=== PATIENT | female | born 1965 | race Caucasian/White ===

== ENCOUNTER 2017-02-22 17:51 | Inpatient (IN) ==
[2017-02-22] MEDS ORDERED: 0.9 % Sodium Chloride 1,000 ML IVC ONE (18:12)
[2017-02-22 18:41] LABS: Basophils % 0.3 %; Eosinophils # 0.1 K/mcL (0.0-0.6); Eosinophils % 0.4 %; Hematocrit 46.3 % (35.3-44.9); Hemoglobin 15.4 g/dL (11.5-15.4); Immature Granulocytes % 0.3 % (0-4); Lymphocytes # 1.2 K/mcL (0.6-4.6); Lymphocytes % 10.6 %; Mean Corpuscular HGB Conc 33.3 g/dL (31.6-35.5); Mean Corpuscular Hemoglobin 32.3 pg (28.0-33.3); Mean Corpuscular Volume 97.1 fL (83.0-100.0); Mean Platelet Volume 8.9 fL (9.4-12.4); Monocytes # 0.4 K/mcL (0.0-1.3); Monocytes % 3.7 %; Neutrophils # 9.8 K/mcL (1.6-8.9); Platelet Count 478 K/mcL (140-400); Red Blood Count 4.77 M/mcL (3.82-4.97); Red Cell Distribution Width 13.4 % (11.5-14.5); Segmented Neutrophils % 84.7 %
[2017-02-22] MEDS ORDERED: Ondansetron 4 MG/2 ML VIAL IVP ONE (18:51)
--- NOTE | 2017-02-22 18:53 | Emergency Department Note ---
START Narrative - START START: Patient seen and evaluated. Upon EMS arrival. Patient was evaluated at [facility] earlier today. Last known well was last night. She went to sleep and woke up this morning complaining of chills, feeling weak all over, a right- sided frontal headache, right-sided facial numbness and feeling unwell. He went to [place] and had a negative head CT and workup and was discharged home. When she went home, she started developing nausea and vomiting. She states she has also developed trouble walking and feels like she is "drunk" has never had problems like this before. States her vision is off but denies any blurriness or diplopia. States she just feels generally unwell. States she does feel like she is having some slurred speech. On exam, the patient is slightly anxious, her muscle strength is 5 out of 5 in upper and lower extremities. Cranial nerves are intact. However, there is some mild decreased sensation of the right face. There is no ataxia. Speech is somewhat slow. However, there is no slurring or aphasia. NIH of 1. Stroke alert. Not called due to prolonged onset of symptoms. Workup started. Concern over potential posterior circulation. Will sign out with recommendations for admission and MRI. <Marcelino Atkins - Last Filed: 02/22/17 18:51> - START START: I, Aaron Diego, examined this patient and my medical decision-making was reviewed with the INDEPENDENT CONTRACTOR/PA/Advanced Practice Nurse/Resident Physician. I agree with the documented findings, disposition and treatment plan as described except to the extent set forth below. 51-year-old female is the emergency department for concerns of paresthesias to the right face, difficulty walking, headache and right-sided neck pain. Patient states she woke with these symptoms and they have not resolved. She was initially evaluated at a different emergency department with a negative CT of her head. She was discharged home however she continued to have increasing nausea and difficulty walking. Patient states she "feels like she is drunk". She denies illicit drug use or EtOH use today. No history of recent trauma. On physical exam the patient has subjective paresthesias to the right upper and lower face. She has no focal neurologic deficits however she does have increased difficulty with [id number] and [id number] testing. Stroke Alert not initiated as last known well was almost 24 hours prior to arrival to the emergency department today. Patient is pending CT of her head, labs, further evaluation and disposition at the end of my shift. Patient care will be transferred to Dr. Vaca pending further evaluation. <Aaron Diego - Last Filed: 02/23/17 13:59>
[2017-02-22] MEDS ORDERED: diazePAM 10 MG/2 ML SYRINGE IVP STA (18:55)
[2017-02-22 19:01] LABS: Alanine Aminotransferase 80 Units/L (0-55); Albumin/Globulin Ratio 0.9 (1.1-2.2); Alkaline Phosphatase 99 Units/L (38-126); Aspartate Amino Transferase 115 Units/L (5-34); BUN/Creatinine Ratio 23 (6-26); Bilirubin,Total 0.6 mg/dL (0.2-1.2); Blood Urea Nitrogen 19 mg/dL (7-20); Carbon Dioxide 26 mEq/L (19-29); Chloride 100 mEq/L (98-109); Globulin 4.4 g/dL (2.4-3.5); Glucose 147 mg/dL (70-99); Magnesium 2.1 mg/dL (1.6-2.6); Osmolality,Calculated 295 (280-300); Phosphorous 3.5 mg/dL (2.3-4.7); Sodium 140 mEq/L (136-145); Total Protein 8.4 g/dL (6.0-8.3); eGFR For African Americans > 60 (> 60); eGFR For Non-African Americans > 60 (> 60)
[2017-02-22 19:25] LABS: Thyroid Stimulating Hormone 0.611 mcIU/mL (0.350-4.840)
[2017-02-22] MEDS ORDERED: *HR* Promethazine 25 MG/ML VIAL IVP ONE (19:35)
[2017-02-22] MEDS ORDERED: Ketorolac 15 MG/ML VIAL IVP ONE (20:20)
[2017-02-22] MEDS ORDERED: Metoclopramide 10 MG/2 ML VIAL IVP ONE (20:20)
--- NOTE | 2017-02-22 21:29 | Emergency Department Note ---
Disposition Clinical Impression: Neurologic abnormality Nausea & vomiting Qualifiers: Vomiting type: unspecified Vomiting Intractability: intractable Qualified Code( s): R11.2 - Nausea with vomiting, unspecified Disposition: Admitted As Inpatient Time of Disposition: 06:07 Neuro HPI - General Chief Complaint: ED Neuro Symptoms/Deficit Stated Complaint: nausea/vomiting/tingling on right side Time Seen by Provider: 02/22/17 18:07 Source: patient Limitations: no limitations Nursing Notes Reviewed: Yes Vital Signs Reviewed: Yes - History of Present Illness HPI Narrative: Ms. Padilla, a 51-year-old female, arrives from home via EMS for evaluation of generalized weakness, headache, nausea, vomiting, inability to walk. She was evaluated at [facility] earlier today and sent home wearing her symptoms persisted and actually worsens. She describes her symptoms as a frontal right- sided headache, right-sided facial numbness and tingling, general unwell feeling , and inability to walk described as a feeling of vertigo. She describes her vision as being change from usual but is unable to describe it otherwise. No blurriness or double vision. Last known well was last night. PMH: Obesity, depression, hypertension ROS: Positive: Headache, nausea, vomiting, generalized weakness, vertigo, paresthesias Negative: Fever, chills, trauma - Related Data Home Medications: Home Medications Medication Instructions Recorded Confirmed BuPROPion XL (24 HR) [Wellbutrin 150 mg PO DAILY 01/21/15 02/22/17 XL] Losartan/HCTZ [Hyzaar 50/12.5] 1 each PO DAILY 01/21/15 02/22/17 CloNIDine HCl [Kapvay] 0.1 mg PO DAILY 02/22/17 02/22/17 Furosemide [Lasix] 20 mg PO DAILY 02/22/17 02/22/17 Ibuprofen [Motrin] 800 mg PO Q8HR 02/22/17 02/22/17 Meloxicam [Mobic] 15 mg PO DAILY 02/22/17 02/22/17 Potassium Chloride [Klor-Con 10] 10 meq PO DAILY 02/22/17 02/22/17 Tizanidine HCl [Zanaflex] 2 mg PO TID 02/22/17 02/22/17 Previous Rx's Medication Instructions Recorded Aspirin Enteric Coated [Aspirin EC] 81 mg PO DAILY #30 tablet. 11/11/16 Allergies/Adverse Reactions: Allergies Allergy/AdvReac Type Severity Reaction Status Date / Time IV DYE Allergy Hives Uncoded 02/22/17 18:04 All systems ED: reviewed and negative except as stated. Past Medical History - Past Medical History Medical history: Reports: hypertension, kidney stones, other Surgical history: Reports: cholecystectomy, other (lithotripsy) Psychiatric history: Reports: depression - Social History Smoking Status: Former smoker Smokeless Tobacco Status: No Alcohol use: Reports: occasionally Drug use: Reports: none Physical Exam Vital Signs Reviewed General: Patient is alert, oriented, and in no acute distress. HEENT: No facial asymmetry. Head is normocephalic and atraumatic. PERRLA, EOMI. no vertical nystagmus. Oral mucosa moist. Trachea midline. Cardiovascular: Heart regular rate and rhythm without clicks, rubs, gallops, or murmurs. No JVD. PMI nondisplaced. Respiratory: Symmetric chest rise with poor respiratory effort. Bilateral breath sounds are clear without wheezing, crackles, or rhonchi. Abdomen: Obese. Bowel sounds present normoactive x-4 quadrants. Abdomen is soft, nondistended, and nontender. Musculoskeletal: Muscle strength 4/5 and symmetric bilaterally in upper and lower extremities. DTRs 2/4 and symmetric bilaterally in upper and lower extremities. Neuro: Cranial nerves II through XII without deficit. Sensation light touch intact. Negative left hand finger to nose, slight ataxia with right finger to nose. Negative bilateral rapid alternating hands. Psych: Patient's affect is appropriate for situation. - General Limitations: no limitations General appearance: alert, other Course Course Narrative: Patient was received on sign out from the day team. On my arrival, she was retching loudly to be heard throughout the emergency department. Her nausea was markedly controlled with Zofran and Phenergan. Her headache persisted. This did improve with Toradol, morphine, and Zofran. Patient's neurologic exam is inconsistent. Patient has no history of coagulopathy, CVA, TIA, arrhythmia, CAD, or ACS. Cannot rule out posterior stroke at this time. Last known well was last night; patient is not a code stroke and is not a TPA candidate. My physical exam is somewhat limited due to suspected poor patient cooperation. Chest x-ray and CT head were unremarkable per radiology read. I discussed the patient with the admitting hospitalist, Dr. Jimenez. He agrees to accept the patient for inpatient MRI and continued evaluation. Chest X-Ray 02/22/17 18:12 IMPRESSION: No acute abnormality. D/ / Og Conrad / Og Conrad Interpreting Provider: Og Conrad Head CT 02/22/17 18:13 IMPRESSION: No findings diagnostic of an acute infarct Punctate foci of low density in the internal capsules bilaterally. This is indeterminate may be artifactual. Sequela of small prior lacunar infarcts not excluded. D/ / Og Conrad / Og Conrad Interpreting Provider: Og Conrad Vital Signs Temperature 97.4 F L 02/22/17 17:59 Pulse Rate 79 02/22/17 17:59 Respiratory Rate 18 02/22/17 17:59 Blood Pressure 149/85 02/22/17 17:59 O2 Sat by Pulse Oximetry 95 02/22/17 17:59 Temperature 97.9 F 02/23/17 03:38 Pulse Rate 72 02/23/17 04:47 Respiratory Rate 17 02/23/17 03:38 Blood Pressure 131/70 02/23/17 04:47 O2 Sat by Pulse Oximetry 91 02/23/17 03:38 Oxygen Delivery Oxygen Delivery Room Air Neuro Symptoms/Deficit - Lab Data Result diagrams: 02/22/17 18:31 02/22/17 18:31 Lab Results 02/22/17 02/22/17 02/22/17 Range/Units 18:11 18:31 18:31 WBC 11.6 H (4.3-11.1) K/mcL RBC 4.77 (3.82-4.97) M/mcL Hgb 15.4 (11.5-15.4) g/dL Hct 46.3 H (35.3-44.9) % MCV 97.1 (83.0-100.0) fL MCH 32.3 (28.0-33.3) pg MCHC 33.3 (31.6-35.5) g/dL RDW 13.4 (11.5-14.5) % Plt Count 478 H (140-400) K/mcL MPV 8.9 L (9.4-12.4) fL Immature Gran % 0.3 (0-4) % Seg Neutrophils % 84.7 % Lymphocytes % 10.6 % Monocytes % 3.7 % Eosinophils % 0.4 % Basophils % 0.3 % Neutrophils # 9.8 H (1.6-8.9) K/mcL Lymphocytes # 1.2 (0.6-4.6) K/mcL Monocytes # 0.4 (0.0-1.3) K/mcL Eosinophils # 0.1 (0.0-0.6) K/mcL Basophils # 0.0 (0.0-0.2) K/mcL Sodium 140 (136-145) mEq/L Potassium 4.0 (3.5-4.5) mEq/L Chloride 100 (98-109) mEq/L Carbon Dioxide 26 (19-29) mEq/L BUN 19 (7-20) mg/dL Creatinine 0.82 (0.57-1.11) mg/dL Est GFR ( Amer) > 60 (> 60) Est GFR (Non-Af Amer) > 60 (> 60) BUN/Creatinine Ratio 23 (6-26) Glucose 147 H (70-99) mg/dL POC Glucose 153 H (58-89) Calculated Osmolality 295 (280-300) Lactic Acid (0.5-2.2) mmol/L Calcium 10.0 (8.6-10.8) mg/dL Phosphorus 3.5 (2.3-4.7) mg/dL Magnesium 2.1 (1.6-2.6) mg/dL Total Bilirubin 0.6 (0.2-1.2) mg/dL AST 115 H (5-34) Units/L ALT 80 H (0-55) Units/L Alkaline Phosphatase 99 (38-126) Units/L Troponin I (0-0.03) ng/mL Serum Total Protein 8.4 H (6.0-8.3) g/dL Albumin 4.0 (3.5-5.0) g/dL Globulin 4.4 H (2.4-3.5) g/dL Albumin/Globulin Ratio 0.9 L (1.1-2.2) TSH 0.611 (0.350-4.840) mcIU/mL 02/22/17 02/22/17 Range/Units 18:31 18:31 WBC (4.3-11.1) K/mcL RBC (3.82-4.97) M/mcL Hgb (11.5-15.4) g/dL Hct (35.3-44.9) % MCV (83.0-100.0) fL MCH (28.0-33.3) pg MCHC (31.6-35.5) g/dL RDW (11.5-14.5) % Plt Count (140-400) K/mcL MPV (9.4-12.4) fL Immature Gran % (0-4) % Seg Neutrophils % % Lymphocytes % % Monocytes % % Eosinophils % % Basophils % % Neutrophils # (1.6-8.9) K/mcL Lymphocytes # (0.6-4.6) K/mcL Monocytes # (0.0-1.3) K/mcL Eosinophils # (0.0-0.6) K/mcL Basophils # (0.0-0.2) K/mcL Sodium (136-145) mEq/L Potassium (3.5-4.5) mEq/L Chloride (98-109) mEq/L Carbon Dioxide (19-29) mEq/L BUN (7-20) mg/dL Creatinine (0.57-1.11) mg/dL Est GFR ( Amer) (> 60) Est GFR (Non-Af Amer) (> 60) BUN/Creatinine Ratio (6-26) Glucose (70-99) mg/dL POC Glucose (58-89) Calculated Osmolality (280-300) Lactic Acid 2.2 (0.5-2.2) mmol/L Calcium (8.6-10.8) mg/dL Phosphorus (2.3-4.7) mg/dL Magnesium (1.6-2.6) mg/dL Total Bilirubin (0.2-1.2) mg/dL AST (5-34) Units/L ALT (0-55) Units/L Alkaline Phosphatase (38-126) Units/L Troponin I 0.00 (0-0.03) ng/mL Serum Total Protein (6.0-8.3) g/dL Albumin (3.5-5.0) g/dL Globulin (2.4-3.5) g/dL Albumin/Globulin Ratio (1.1-2.2) TSH (0.350-4.840) mcIU/mL NIH Stroke Scale - Level of Consciousness LOC: Drowsy, but arousable - LOC Questions LOC Questions: Answers both correctly - LOC Commands LOC Commands: Performs both correctly - Best Gaze Best Gaze: Normal - Visual Visual: No visual loss - Facial Palsy Facial Palsy: Normal - Motor Arms Motor Arm-Left: No drift for 10 seconds Motor Arm-Right: No drift for 10 seconds - Motor Legs Motor Leg-Left: No drift for 5 seconds Motor Leg-Right: No drift for 5 seconds - Limb Ataxia Limb Ataxia: Absent of affected limb too weak to perform exam - Sensory Sensory: Normal - Best Language Best Language: No aphasia - Dysarthria Dysarthria: Normal - Extinction and Inattention Extinction and Inattention: Normal - NIHSS Total Score NIHSS Total Score: 1 TPA Checklist - Source Information Source: Patient - Eligibilty for IV tPA 1. LKW equal to or less than 4.5 hours be before treatment: No - LKW: 3-4.5 hrs Add. Warnings/Precautions Patient/family understanding: The patient/family members have been counseled and understood the risk, benefit , and alternatives of treatment. Attestation Statement - Attestation Attestation: I, Perfecto Vaca MD, personally evaluated this patient and discussed their management with the resident physician. I reviewed the resident's note and agree with the documented findings, medical decision making, and plan of care. This patient was signed out at shift change from Dr. Atkins and Dr. Diego. Workup initiated prior to shift change. Patient is a 51-year-old female who reports that she awoke this morning feeling weak and dizzy and lightheaded with tingling and numbness in the right side of her face. She denies any numbness or weakness in the arm or leg. She complains of difficulty with her balance and nausea and vomiting also. Some posterior headache. She was seen this morning at another facility and had a negative head CT. After going home the nausea and vomiting became worse and she came here. On examination patient is a well-developed obese female in no acute distress. She is alert and oriented 3. There is no cyanosis or diaphoresis. Breath sounds are clear and equal bilaterally. Heart regular rate and rhythm. Abdomen soft and nontender with normal bowel sounds. No gross focal neurological deficits noted. Repeat head CT shows no findings diagnostic of an acute infarct. Labs reviewed. EKG shows a normal sinus rhythm with a heart rate of 82. Nonspecific T wave abnormality. No acute ischemic changes or arrhythmia. The hospitalist, Dr. Jimenez, was consulted and accepted admission of the patient.
[2017-02-23] MEDS ORDERED: Ondansetron 4 MG/2 ML VIAL IVP PRN (00:43)
[2017-02-23] MEDS ORDERED: *HR* Morphine 2 MG/ML SYRINGE IVP ONE (00:45)
[2017-02-23] MEDS: 0.9 % Sodium Chloride 1,000 ML IVC SCH ×2 (01:08→20:44)
[2017-02-23] MEDS ORDERED: *HR* LORazepam 2 MG/ML VIAL IVP ONE (05:03)
[2017-02-23] MEDS ORDERED: *HR* LORazepam 2 MG/ML VIAL ONE (05:06)
[2017-02-23] MEDS ORDERED: Naloxone 0.4 MG/ML INJ IVP PRN (05:28)
[2017-02-23] MEDS ORDERED: Acetaminophen 325 MG TABLET PO PRN (05:28)
[2017-02-23 05:40] LABS: Bilirubin,Urine Negative (Negative); Blood,Urine Negative (Negative); Clarity,Urine Clear (Clear); Color,Urine Yellow (Yellow); Glucose,Urine (UA) Normal (Normal); Ketones,Urine Negative (Negative); Leukocyte Esterase,Urine Negative (Negative); Nitrite,Urine Negative (Negative); Protein,Urine Negative (Neg-Trace); Specific Gravity,Urine 1.027 (1.010-1.025); Urobilinogen,Urine Normal (Normal)
--- NOTE | 2017-02-23 06:06 | Internal Med History&Physical ---
Date of Encounter: 02/23/17 Time of Encounter: 04:45 Assessment and Plan (1) Right facial numbness Current visit: Yes Status: Acute 1. Concern for TIA/stroke versus Avalos's Palsy. 2. Will proceed with stroke work-up including MRI, ECHO, Carotid Dopplers. 3. Consult Neurology and appropriate therapies. 4. ASA, STATIN. (2) Hypertension Current visit: Yes Status: Chronic 1. Monitor BP and do not treat unless it exceeds SBP 160. 2. If true stroke, will allow permissive HTN to SBP 160. 3. Verify home meds and initiate when able to so. Qualifiers: Hypertension type: essential hypertension Qualified Code(s): I10 - Essential (primary) hypertension (3) Nausea & vomiting Current visit: Yes Status: Acute 1. IVF and anti-emetics PRN. Qualifiers: Vomiting type: unspecified Vomiting Intractability: non-intractable Qualified Code(s): R11.2 - Nausea with vomiting, unspecified (4) DVT prophylaxis Current visit: Yes Status: Acute 1. Heparin SQ. Internal Medicine - H&P: HPI Chief complaint: right sided facial numbness Admitted From: Emergency Dept Plans for Post Hospital Care: Home History of present illness: Ms. Padilla is a 51 year old female who presents with complaints of right-sided facial numbness and paresthesias which started yesterday after awakening. Symptoms persisted throughout the day, and she came to the ER tonight. She denies any other focal deficits, but she has had some difficulty walking. Workup in the ER was negative, but the CT of the head did show some punctate foci in the internal capsules which may be artifact. She was subsequently admitted to the hospitalist service. She had a headache earlier with nausea and vomiting, but that resolved. She just has some periodic nausea now. She and her deny any speech deficits, choking, gagging, numbness or paralysis in her extremities. Past Med Surg Social Fam HX - Past Medical History Attestation: Yes The following information was validated with the patient. Source: patient, old records reviewed, obtained from family Medical history: hypertension, kidney stones Psychiatric history: depression - Past Surgical History Surgical History: cholecystectomy - Social History Smoking Status: Former smoker Smokeless Tobacco Status: No Alcohol use: occasionally Drug use: none Current living situation: Home, With Family Activity Level: Independent ambulation - Family History Mother Living Status: Hx Family Neuromuscular Disorders: No Father Living Status: Still Living Hx Family Neurologic Disorders: No Internal Medicine - H&P: Meds BuPROPion XL (24 HR) [Wellbutrin XL] 150 mg PO DAILY 01/21/15 [History] Losartan/HCTZ [Hyzaar 50/12.5] 1 each PO DAILY 01/21/15 [History] Aspirin Enteric Coated [Aspirin EC] 81 mg PO DAILY #30 tablet.dr 11/11/16 [Rx] CloNIDine HCl [Kapvay] 0.1 mg PO DAILY 02/22/17 [History] Furosemide [Lasix] 20 mg PO DAILY 02/22/17 [History] Ibuprofen [Motrin] 800 mg PO Q8HR 02/22/17 [History] Meloxicam [Mobic] 15 mg PO DAILY 02/22/17 [History] Potassium Chloride [Klor-Con 10] 10 meq PO DAILY 02/22/17 [History] Tizanidine HCl [Zanaflex] 2 mg PO TID 02/22/17 [History] 3 Allergy/AdvReac Type Severity Reaction Status Date / Time IV DYE Allergy Hives Uncoded 02/22/17 18:04 - Constitutional Constitutional: no anorexia, no chills, no fever(s), no night sweats - EENT Eyes: no blurry vision, no change in vision, no photophobia Ears: no ear pain, no tinnitus Nose, mouth and throat: no nasal congestion, no sinus pressure, no sore throat - Cardiovascular Cardiovascular ROS IM: no chest pain, no diaphoresis, no dyspnea - Respiratory Respiratory: no cough, no hemoptysis - Gastrointestinal Gastrointestinal: nausea, vomiting, no abdominal pain, no diarrhea - Genitourinary Genitourinary: no dysuria, no flank pain, no hematuria - Musculoskeletal Musculoskeletal ROS IM: no back pain, no neck pain, no stiffness - Integumentary Integumentary IM: no rash - Neurological Neurological ROS: abnormal gait, headache(s), numbness (right face), tingling ( right face), no focal weakness, no frequent falls - Psychiatric Psychiatric: no anxiety, no depression - Endocrine Endocrine IM: no polydipsia, no polyuria - Allergic/Immunologic Allergic/Immunologic: no GI upset with certain foods - Constitutional Vitals: Temp Pulse Resp BP Pulse Ox 97.9 F 72 17 131/70 91 02/23/17 03:38 02/23/17 04:47 02/23/17 03:38 02/23/17 04:47 02/23/17 03:38 General appearance: Present: A&O X 3, no acute distress - Head Head exam: Present: atraumatic, normal inspection - Eye Eye exam: Present: EOMI, PERRL. Absent: scleral icterus Pupils: Present: normal accommodation - ENT ENT exam: Present: mucous membranes dry, normal exam - Neck Neck exam general surgery: Present: full ROM, supple. Absent: tenderness, nuchal rigidity - Respiratory Respiratory exam: Present: CTAB. Absent: rales, rhonchi, wheezes - Cardiovascular Cardiovascular exam: Present: RRR, +S1, +S2. Absent: systolic murmur - GI/Abdominal GI/Abdominal exam: Present: soft. Absent: hepatomegaly, splenomegaly, tenderness - Extremities Exam Extremities exam: Present: warm, radial pulses palpable and symmetrical. Absent : calf tenderness, pedal edema - Back Exam Back exam: Present: normal inspection. Absent: CVA tenderness (L), CVA tenderness (R) - Neurological Exam Neurological exam: Present: alert, oriented X3, reflexes normal, strengths equal and symetr throughout. Absent: facial droop, speech deficit Additional comments: right facial numbness and parasthesias forehead to chin - Psychiatric Psychiatric exam: Present: normal affect, normal mood - Skin Skin exam: Present: dry, warm. Absent: rash Internal Med - H&P Results - Labs CBC & Chem 7: 02/22/17 18:31 02/22/17 18:31 Labs: Urine 02/23/17 Range/Units 05:30 Urine Color Yellow (Yellow) Urine Clarity Clear (Clear) Urine pH 6.0 (5.0-8.0) pH Units Ur Specific [place] 1.027 H (1.010-1.025) Urine Protein Negative (Neg-Trace) mg/dL Urine Glucose (UA) Normal (Normal) mg/dL - EKG Data -: EKG Interpreted by Myself EKG shows normal: sinus rhythm - EKG Data EKG comments: 02/23/17 06:17 NSR; no acute changes - Diagnostic Studies Chest x-ray Status: image reviewed by me (negative)
[2017-02-23 06:09] LABS: Prothrombin Time 10.9 Seconds (9.4-12.1)
[2017-02-23 06:12] LABS: Activated Partial Thrombo Time 27.1 Seconds (26.0-36.0)
[2017-02-23] MEDS: Ondansetron 4 MG/2 ML VIAL IVP SCH ×3 (07:27→17:37)
--- NOTE | 2017-02-23 09:55 | Neurology - Consult Note ---
Date of Encounter: 02/23/17 Time of Encounter: 08:40 Assessment and Plan (1) Tension headache Current Visit: No Status: Acute Continue on current medication including aspirin may use muscle relaxant at bedtime at the moment headaches are not as bad but if his bAd can use low-dose of Solu-Medrol (2) Right facial numbness Current Visit: Yes Status: Acute Patient noted to have a very minimal weakness of the right side but again not very convincing at the same time complaining of some facial numbness. She is been started on an aspirin I suggest to continue she will need workup including MRI of the brain as well as echocardiogram and carotid duplex continue to monitor her blood pressure and blood sugar according to the stroke protocol History of Present Illness HPI: Ms. Padilla is a 51 year old female Ms. Padilla, a 51-year-old female, arrives from home via EMS for evaluation of generalized weakness, headache, nausea, vomiting , inability to walk. She was evaluated at [facility] earlier today and sent home wearing her symptoms persisted and actually worsens. She describes her symptoms as a frontal right-sided headache, right-sided facial numbness and tingling, general unwell feeling, and inability to walk described as a feeling of vertigo. She describes her vision as being change from usual but is unable to describe it otherwise. No blurriness or double vision. Past Med Surg Social Fam HX - Past Medical History Medical history: hypertension, kidney stones Psychiatric history: depression - Past Surgical History Surgical History: cholecystectomy - Social History Smoking Status: Former smoker Smokeless Tobacco Status: No Alcohol use: occasionally Drug use: none - Family History Mother Living Status: Hx Family Neuromuscular Disorders: No Father Living Status: Still Living Hx Family Neurologic Disorders: No Medications and Allergies Losartan/HCTZ [Hyzaar 50/12.5] 1 each PO DAILY 01/21/15 [History] Aspirin Enteric Coated [Aspirin EC] 81 mg PO DAILY #30 tablet. 11/11/16 [Rx] Furosemide [Lasix] 20 mg PO DAILY 02/22/17 [History] Ibuprofen [Motrin] 800 mg PO Q8HR 02/22/17 [History] Meloxicam [Mobic] 15 mg PO DAILY 02/22/17 [History] Potassium Chloride [Klor-Con 10] 10 meq PO DAILY 02/22/17 [History] Tizanidine HCl [Zanaflex] 2 mg PO TID 02/22/17 [History] 3 Allergy/AdvReac Type Severity Reaction Status Date / Time IV DYE Allergy Hives Uncoded 02/22/17 18:04 All Systems: A 10-system review of systems was performed and is negative for pertinent findings except as documented above in the HPI. Physical Examination - Vital Signs Vital Signs: Initial Vital Signs Temp Pulse Resp BP Pulse Ox 97.4 F L 79 18 149/85 95 02/22/17 17:59 02/22/17 17:59 02/22/17 17:59 02/22/17 17:59 02/22/17 17:59 - Constitutional General appearance: comfortable - Neurologic Sensorimotor examination: intact Detailed motor examination: grossly full strength in all extremities Detailed sensory examination: intact Reflex and gait examination: intact Reflexes: Biceps: 1+, Triceps: 1+, Brachioradialis: 1+, Patella: 1+, Achilles: 1 + Mental Status Examination: awake, alert, oriented to person, oriented to place, oriented to time, follows commands appropriately, answers questions appropriately, no agnosia, no aphasia, no aproxia Cranial nerve examination: PERRL (mild dysmetria on right ), EOMI, visual waldrop intact, corneal reflexes brisk symmetrically, sensory to face intact, mastication intact, no facial asymmetry is present, no dysarthria, hearing is intact symmetrically, soft palate elevates bilaterally upon phonation, gag reflex intact, flexes SCM and trapezius muscles symmetrically with full power, tongue protrudes midline, no atrophy or facial fasiculations present Results - Laboratory Findings CBC and BMP: 02/24/17 04:40 02/24/17 04:40 Abnormal lab findings: Abnormal lab results WBC 11.6 K/mcL (4.3-11.1) H 02/22/17 18:31 Hct 46.3 % (35.3-44.9) H 02/22/17 18:31 Plt Count 478 K/mcL (140-400) H 02/22/17 18:31 MPV 8.9 fL (9.4-12.4) L 02/22/17 18:31 Neutrophils # 9.8 K/mcL (1.6-8.9) H 02/22/17 18:31 Glucose 147 mg/dL (70-99) H 02/22/17 18:31 POC Glucose 153 (58-89) H 02/22/17 18:11 AST 115 Units/L (5-34) H 02/22/17 18:31 ALT 80 Units/L (0-55) H 02/22/17 18:31 Serum Total Protein 8.4 g/dL (6.0-8.3) H 02/22/17 18:31 Globulin 4.4 g/dL (2.4-3.5) H 02/22/17 18:31 Albumin/Globulin Ratio 0.9 (1.1-2.2) L 02/22/17 18:31 Ur Specific [place] 1.027 (1.010-1.025) H 02/23/17 05:30 Consult Discharge Plan - Plan Referrals: Rosa Moran MD [Primary Care Provider] -
[2017-02-23] MEDS: Pantoprazole 40 MG VIAL IVP SCH (11:13)
[2017-02-23] MEDS: *HR* Heparin 5,000 UNIT/ML VIAL SQ SCH ×3 (11:13→20:34)
[2017-02-23] MEDS: Aspirin 81 MG TAB.CHEW PO SCH (11:14)
--- NOTE | 2017-02-23 17:52 | Internal Med Progress Note ---
Date of Encounter: 02/23/17 Time of Encounter: 10:00 - Assessment and plan (1) CVA (cerebral vascular accident) Current Visit: Yes Status: Acute Assessment and plan: Patient has positive MRI for infarct. Patient has vertigo, right-sided weakness. Neurology consult on case. - We will continue aspirin and atorvastatin. - Continue cardiac monitoring to rule out A. fib. - Echocardiogram and duplex carotid ordered. - PTOT evaluation. Patient passed swallowing evaluation already. - Symptomatic treatment with Zofran, phenergan, and meclizine. - IV fluid because patient has poor intake Qualifiers: CVA mechanism: unspecified Qualified Code(s): I63.9 - Cerebral infarction, unspecified (2) Hypertension Current Visit: Yes Status: Chronic Assessment and plan: Hold home medication as patient had acute stroke, keep permissive hypertension. Qualifiers: Hypertension type: essential hypertension Qualified Code(s): I10 - Essential (primary) hypertension (3) DVT prophylaxis Current Visit: Yes Status: Acute Assessment and plan: Heparin subcutaneously (4) Abnormal liver function Current Visit: Yes Status: Acute Assessment and plan: Mild ALT and AST elevation noticed. Patient denies alcohol use or history of hepatitis. Probably due to intractable nausea vomiting. Will follow up liver function, acute hepatitis panel, liver US. Will continue atorvastatin at 40 mg at this point because of acute CVA, however, may hold if liver function getting worse. Avoid other hepatic toxic medication - Time Spent With Patient 25 - 35 minutes - Subjective Interval history: Patient is a 51-year-old female admitted for vertigo, nausea, vomiting, and right-sided weakness. Past medical history is significant for hypertension and kidney stones Patient was seen and examined. Still has vertigo and nausea. Nausea can be controlled by medication. Still feel right side weakness. Vitals are stable. MRI shows tiny acute infarct involving the right portion of the medulla. Neurology consult appreciated. Agent was placed on aspirin and atorvastatin. - Constitutional Vitals: Temp Pulse Resp BP Pulse Ox 99.3 F 75 17 156/83 98 02/23/17 16:06 02/23/17 16:06 02/23/17 16:06 02/23/17 16:06 02/23/17 16:06 General appearance: Present: A&O X 3, no acute distress - Head Head exam: Present: atraumatic, normocephalic - Eye Eye exam: Present: PERRL, conjuntiva pink, sclera anicteric Pupils: Present: PERRL - Neck Neck exam general surgery: Present: supple, trachea midline. Absent: lymphadenopathy - Respiratory Respiratory exam: Present: CTAB. Absent: accessory muscle use, rales, rhonchi, wheezes - Cardiovascular Cardiovascular exam: Present: RRR, +S1, +S2. Absent: diastolic murmur, gallop, rubs, systolic murmur - GI/Abdominal GI/Abdominal exam: Present: normal bowel sounds, soft, no peritoneal signs. Absent: distended, tenderness - Extremities Exam Extremities exam: Present: warm, radial pulses palpable and symmetrical. Absent : calf tenderness, cyanotic, pedal edema - Neurological Exam Neurological exam: Present: CN II-XII intact, motor sensory deficit (LE/UE on Rt : 5-/5), oriented X3, no focal deficits. Absent: pronater drift, facial droop, speech deficit - Skin Skin exam: Present: dry, intact Internal Medicine: Result - Labs CBC & Chem 7: 02/22/17 18:31 02/22/17 18:31 Labs: Urine 02/23/17 Range/Units 05:30 Urine Color Yellow (Yellow) Urine Clarity Clear (Clear) Urine pH 6.0 (5.0-8.0) pH Units Ur Specific [place] 1.027 H (1.010-1.025) Urine Protein Negative (Neg-Trace) mg/dL Urine Glucose (UA) Normal (Normal) mg/dL - ABG Interpretation ABG results: PT/INR, D-dimer PT 10.9 Seconds (9.4-12.1) 02/23/17 05:53 - Impressions Impressions Brain MRI 02/23/17 05:28 IMPRESSION: Tiny acute infarct involving the right portion of the medulla. D/ / 02/23/2017 10:49:14 Froylan Mancia MD / nevaeh Interpreting Provider: Froylan Mancia MD Consult Discharge Plan - Plan Referrals: Rosa Moran MD [Primary Care Provider] -
[2017-02-23] MEDS: *HR* OxyCODONE Immed Rel 5 MG TABLET PO PRN (17:54)
[2017-02-24] MEDS: Ondansetron 4 MG/2 ML VIAL IVP SCH ×4 (00:02→17:52)
[2017-02-24] MEDS: Ibuprofen 400 MG TABLET PO PRN ×3 (03:59→21:43)
[2017-02-24 05:15] LABS: Basophils % 0.5 %; Eosinophils # 0.2 K/mcL (0.0-0.6); Eosinophils % 3.1 %; Hematocrit 38.9 % (35.3-44.9); Hemoglobin 12.6 g/dL (11.5-15.4); Immature Granulocytes % 0.3 % (0-4); Lymphocytes % 25.9 %; Mean Corpuscular HGB Conc 32.4 g/dL (31.6-35.5); Mean Corpuscular Hemoglobin 32.1 pg (28.0-33.3); Mean Platelet Volume 9.2 fL (9.4-12.4); Monocytes # 0.6 K/mcL (0.0-1.3); Monocytes % 7.1 %; Neutrophils # 4.9 K/mcL (1.6-8.9); Platelet Count 388 K/mcL (140-400); Red Blood Count 3.93 M/mcL (3.82-4.97); Red Cell Distribution Width 13.4 % (11.5-14.5); Segmented Neutrophils % 63.1 %
[2017-02-24 05:31] LABS: Alanine Aminotransferase 52 Units/L (0-55); Albumin/Globulin Ratio 0.9 (1.1-2.2); Alkaline Phosphatase 67 Units/L (38-126); Aspartate Amino Transferase 61 Units/L (5-34); BUN/Creatinine Ratio 15 (6-26); Bilirubin,Total 0.6 mg/dL (0.2-1.2); Blood Urea Nitrogen 11 mg/dL (7-20); Carbon Dioxide 26 mEq/L (19-29); Chloride 108 mEq/L (98-109); Chol/HDL Ratio 5.4 (0-4.9); Cholesterol 179 mg/dL (< 200); Globulin 3.4 g/dL (2.4-3.5); Glucose 130 mg/dL (70-99); HDL Cholesterol 33 mg/dL (40-59); LDL Cholesterol,Calculated 111 mg/dL (0-99); Magnesium 1.7 mg/dL (1.6-2.6); Osmolality,Calculated 295 (280-300); Potassium 3.4 mEq/L (3.5-4.5); Sodium 142 mEq/L (136-145); Triglycerides 177 mg/dL (< 150); eGFR For African Americans > 60 (> 60); eGFR For Non-African Americans > 60 (> 60)
[2017-02-24 05:32] LABS: Calcium 8.2 mg/dL (8.6-10.8)
[2017-02-24 05:33] LABS: Total Protein 6.4 g/dL (6.0-8.3)
[2017-02-24 05:54] LABS: Hepatitis A Antibody IgM Nonreactive (Nonreactive); Hepatitis B Core IgM Nonreactive (Nonreactive); Hepatitis B Surface Antigen Nonreactive (Nonreactive); Hepatitis C Virus Antibody Nonreactive (Nonreactive)
[2017-02-24] MEDS: *HR* Heparin 5,000 UNIT/ML VIAL SQ SCH ×3 (05:57→21:21)
[2017-02-24] MEDS: Pantoprazole 40 MG VIAL IVP SCH (09:57)
[2017-02-24] MEDS: Aspirin 81 MG TAB.CHEW PO SCH (09:57)
[2017-02-24] MEDS: 0.9 % Sodium Chloride 1,000 ML IVC SCH (09:58)
--- NOTE | 2017-02-24 13:27 | Neurology Progress Note ---
Date of Encounter: 02/24/17 Time of Encounter: 08:20 Assessment and Plan (1) CVA (cerebral vascular accident) Current Visit: Yes Status: Acute MRI of the brain did shows evidence of acute tiny right medullary infarct. Patient did not have any significant neurological deficit she has been on aspirin and blood pressure is being monitored , carotid results are pending at this time Recommend that she should continue on aspirin and statin. Continue to monitor her blood pressure patient seems to be quite anxious and nervous today may need some medication to help with it if she remains stable could be discharged after physical therapy evaluation Qualifiers: CVA mechanism: unspecified Qualified Code(s): I63.9 - Cerebral infarction, unspecified (2) Tension headache Current Visit: No Status: Acute (3) Right facial numbness Current Visit: Yes Status: Acute Subjective Interval history: Patient overall is stable she denies any new weakness or numbness seems to be very anxious and nervous and been crying today MRI did shows tiny acute infarct in the right side of the [place] echocardiogram is negative, awaits carotids results, Objective - Constitutional Vitals: Temp Pulse Resp BP Pulse Ox 97.9 F 86 17 165/84 96 02/24/17 07:00 02/24/17 07:00 02/24/17 07:00 02/24/17 07:00 02/24/17 07:00 - Neurological Exam Sensorimotor examination: Present: intact Motor Examination: Present: grossly full strength in all extremities Sensation intact: Present: intact Reflex and gait examination: intact Mental Status Examination: Present: awake, alert, oriented to person, oriented to place, oriented to time, follows commands appropriately, answers questions appropriately, no agnosia, no aphasia, no aproxia Cranial nerve examination: Present: PERRL (mild dysmetria on right ), EOMI, visual waldrop intact, corneal reflexes brisk symmetrically, sensory to face intact, mastication intact, no facial asymmetry is present, no dysarthria, hearing is intact symmetrically, soft palate elevates bilaterally upon phonation , gag reflex intact, flexes SCM and trapezius muscles symmetrically with full power, tongue protrudes midline, no atrophy or facial fasiculations present Results - Laboratory Findings CBC and BMP: 02/24/17 04:40 02/24/17 04:40 Abnormal lab findings: Abnormal lab results MPV 9.2 fL (9.4-12.4) L 09/19/17 04:40 Potassium 3.4 mEq/L (3.5-4.5) L 02/24/17 04:40 Glucose 130 mg/dL (70-99) H 02/24/17 04:40 POC Glucose 153 (58-89) H 02/22/17 18:11 Calcium 8.2 mg/dL (8.6-10.8) L D 02/24/17 04:40 AST 61 Units/L (5-34) H 02/24/17 04:40 Albumin 3.0 g/dL (3.5-5.0) L D 02/24/17 04:40 Albumin/Globulin Ratio 0.9 (1.1-2.2) L 02/24/17 04:40 Triglycerides 177 mg/dL (< 150) H 02/24/17 04:40 LDL Cholesterol, Calc 111 mg/dL (0-99) H 02/24/17 04:40 VLDL Cholesterol, Calc 35 mg/dL (< 31) H 02/24/17 04:40 HDL Cholesterol 33 mg/dL (40-59) L 02/24/17 04:40 Cholesterol/HDL Ratio 5.4 (0-4.9) H 02/24/17 04:40 Ur Specific [place] 1.027 (1.010-1.025) H 02/23/17 05:30 Consult Discharge Plan - Plan Referrals: Rosa Moran MD [Primary Care Provider] -
[2017-02-24] MEDS: *HR* OxyCODONE Immed Rel 5 MG TABLET PO PRN (15:12)
--- NOTE | 2017-02-24 18:26 | Electrocardiograph Report ---
[place] [id number] Test Date: 2017-02-22 Pat Name: Maria Teresa Padilla Department: 105 Room: 2NE27 Gender: F [employer] Manager: EKP : [id number] Requested By: Marcelino Atkins Order Number: [id number] Reading MD: Lizzie Eric Measurements Intervals [place] Rate: 82 P: 48 AR: 161 QRS: 33 QRSD: 89 T: 56 QT: 398 QTc: 437 Interpretive Statements SINUS RHYTHM NONSPECIFIC T-WAVE ABNORMALITY Electronically Signed On 02-24-2017 18:24:36 EDT by Lizzie Eric
--- NOTE | 2017-02-24 18:30 | Internal Med Progress Note ---
Date of Encounter: 02/24/17 Time of Encounter: 10:00 - Assessment and plan (1) CVA (cerebral vascular accident) Current Visit: Yes Status: Acute Assessment and plan: Patient has positive MRI for infarct. Patient has vertigo, right-sided weakness. Neurology consult on case. - We will continue aspirin and atorvastatin. - Continue cardiac monitoring to rule out A. fib. - Echocardiogram and duplex carotid ordered. Results unremarkable - PTOT evaluation. Patient passed swallowing evaluation already. - Symptomatic treatment with Zofran, phenergan, and meclizine. - IV fluid because patient has poor intake Qualifiers: CVA mechanism: unspecified Qualified Code(s): I63.9 - Cerebral infarction, unspecified (2) Hypertension Current Visit: Yes Status: Chronic Assessment and plan: Hold home medication as patient had acute stroke, keep permissive hypertension. Qualifiers: Hypertension type: essential hypertension Qualified Code(s): I10 - Essential (primary) hypertension (3) DVT prophylaxis Current Visit: Yes Status: Acute Assessment and plan: Heparin subcutaneously (4) Abnormal liver function Current Visit: Yes Status: Acute Assessment and plan: Mild ALT and AST elevation noticed. Patient denies alcohol use or history of hepatitis. Probably due to intractable nausea vomiting. Improved today. US liver shows fatty liver. Hepatitis test negative for hepatitis A, B, and C. - Time Spent With Patient 25 - 35 minutes - Subjective Interval history: Patient is a 51-year-old female admitted for vertigo, nausea, vomiting, and right-sided weakness. Past medical history is significant for hypertension and kidney stones Patient was seen and examined. Still has vertigo and nausea, improved after medications. Nausea can be controlled by medication. Still feel right side weakness. Vitals are stable. MRI shows tiny acute infarct involving the right portion of the medulla. Neurology consult on case. Pt was placed on aspirin and atorvastatin. PT/OT evaluation. - Constitutional Vitals: Temp Pulse Resp BP Pulse Ox 98.2 F 81 17 158/78 94 02/24/17 14:57 02/24/17 14:57 02/24/17 14:57 02/24/17 14:57 02/24/17 14:57 General appearance: Present: A&O X 3, no acute distress - Head Head exam: Present: atraumatic, normocephalic - Eye Eye exam: Present: PERRL, conjuntiva pink, sclera anicteric Pupils: Present: PERRL - Neck Neck exam general surgery: Present: supple, trachea midline. Absent: lymphadenopathy - Respiratory Respiratory exam: Present: CTAB. Absent: accessory muscle use, rales, rhonchi, wheezes - Cardiovascular Cardiovascular exam: Present: RRR, +S1, +S2. Absent: diastolic murmur, gallop, rubs, systolic murmur - GI/Abdominal GI/Abdominal exam: Present: normal bowel sounds, soft, no peritoneal signs. Absent: distended, tenderness - Extremities Exam Extremities exam: Present: warm, radial pulses palpable and symmetrical. Absent : calf tenderness, cyanotic, pedal edema - Neurological Exam Neurological exam: Present: CN II-XII intact, motor sensory deficit (Right side 5-/5), oriented X3, no focal deficits. Absent: pronater drift, facial droop, speech deficit - Skin Skin exam: Present: dry, intact Internal Medicine: Result - Labs CBC & Chem 7: 02/24/17 04:40 02/24/17 04:40 - ABG Interpretation ABG results: PT/INR, D-dimer PT 10.9 Seconds (9.4-12.1) 02/23/17 05:53 Consult Discharge Plan - Plan Referrals: Rosa Moran MD [Primary Care Provider] -
[2017-02-25] MEDS: Ondansetron 4 MG/2 ML VIAL IVP SCH ×2 (00:18→05:57)
[2017-02-25] MEDS: *HR* Heparin 5,000 UNIT/ML VIAL SQ SCH (05:58)
[2017-02-25 06:44] LABS: Basophils % 0.4 %; Eosinophils # 0.4 K/mcL (0.0-0.6); Eosinophils % 4.7 %; Hematocrit 41.9 % (35.3-44.9); Hemoglobin 13.4 g/dL (11.5-15.4); Immature Granulocytes % 0.4 % (0-4); Lymphocytes # 2.1 K/mcL (0.6-4.6); Lymphocytes % 24.6 %; Mean Corpuscular Hemoglobin 31.7 pg (28.0-33.3); Mean Corpuscular Volume 99.1 fL (83.0-100.0); Mean Platelet Volume 9.4 fL (9.4-12.4); Monocytes # 0.6 K/mcL (0.0-1.3); Monocytes % 7.4 %; Neutrophils # 5.2 K/mcL (1.6-8.9); Platelet Count 394 K/mcL (140-400); Red Blood Count 4.23 M/mcL (3.82-4.97); Red Cell Distribution Width 13.2 % (11.5-14.5); Segmented Neutrophils % 62.5 %
[2017-02-25 07:00] LABS: Alanine Aminotransferase 46 Units/L (0-55); Albumin 3.2 g/dL (3.5-5.0); Albumin/Globulin Ratio 0.8 (1.1-2.2); Alkaline Phosphatase 75 Units/L (38-126); Aspartate Amino Transferase 47 Units/L (5-34); BUN/Creatinine Ratio 17 (6-26); Bilirubin,Total 0.4 mg/dL (0.2-1.2); Blood Urea Nitrogen 13 mg/dL (7-20); Calcium 8.6 mg/dL (8.6-10.8); Carbon Dioxide 22 mEq/L (19-29); Chloride 109 mEq/L (98-109); Globulin 3.8 g/dL (2.4-3.5); Glucose 111 mg/dL (70-99); Osmolality,Calculated 291 (280-300); Sodium 140 mEq/L (136-145); eGFR For African Americans > 60 (> 60); eGFR For Non-African Americans > 60 (> 60)
--- NOTE | 2017-02-25 07:38 | Carotid Imaging Report ---
Carotid Duplex Patient Name:Maria Teresa Padilla Order Number:[id number] Procedure Date:02/23/2017 Date:1965Age:51 yrs Gender:Female Lt BP:135 / 75 mmHg Rt.BP:132 / 73 mmHgHeart Rate: Location:[facility] Room #: 2NE27 Pantograph Transferrer:Nadege Salinas, CHEO, RVT Referring MD:Je Jimenez MD Reading MD:Ruben Macias MD Primary Indications:Transient ischemic attack Risk Factors Yes/No Hypertension Yes Smoker Previous Yes Impressions: Findings: Bilateral carotid system is essentially normal. Recommendations: After imaging the patient returned to their room. Findings Carotid Duplex: Right: The right proximal common carotid artery has a PSV of 80 cm/s and a EDV of 22 cm/s. The right mid common carotid artery has a PSV of 67 cm/s and a EDV of 19 cm/s. The right distal common carotid artery has a PSV of 50 cm/s and a EDV of 15 cm/s. The right bifurcation has a PSV of 43 cm/s and a EDV of 15 cm/s. The right proximal internal carotid artery has a PSV of 58 cm/s and a EDV of 15 cm/s. The right mid internal carotid artery has a PSV of 106 cm/s and a EDV of 32 cm/s. The right distal internal carotid artery has a PSV of 117 cm/s and a EDV of 37 cm/s. The right eca has a PSV of 157 cm/s and a EDV of 23 cm/s. The right vertebral artery has a PSV of 92 cm/s and a EDV of 33 cm/s. Left: The left proximal common carotid artery has a PSV of 106 cm/s and a EDV of 25 cm/s. The left mid common carotid artery has a PSV of 65 cm/s and a EDV of 20 cm/s. The left distal common carotid artery has a PSV of 77 cm/s and a EDV of 26 cm/s. The left bifurcation has a PSV of 70 cm/s and a EDV of 22 cm/s. The left proximal internal carotid artery has a PSV of 81 cm/s and a EDV of 26 cm/s. The left mid internal carotid artery has a PSV of 87 cm/s and a EDV of 30 cm/s. The left distal internal carotid artery has a PSV of 81 cm/s and a EDV of 30 cm/s. The left eca has a PSV of 157 cm/s and a EDV of 21 cm/s. The left vertebral artery has a PSV of 77 cm/s and a EDV of 15 cm/s. Prior Study: No prior study available for comparison. Carotid Results Right PSV EDV Assessment Proximal CCA 80 22 Mid CCA 67 19 Distal CCA 50 15 Bifurcation 43 15 Proximal ICA 58 15 Mid ICA 106 32 Distal ICA 117 37 ECA 157 23 Vertebral Artery 92 33 Antegrade Flow Left PSV EDV Assessment Proximal CCA 106 25 Mid CCA 65 20 Distal CCA 77 26 Bifurcation 70 22 Proximal ICA 81 26 Mid ICA 87 30 Distal ICA 81 30 ECA 157 21 Vertebral Artery 77 15 Antegrade Flow Ratio's Right ICA/CCA Ratio: 1.75 ICA/CCA Values: 117/67 Left ICA/CCA Ratio: 1.34 ICA/CCA Values: 87/65 Updated by Ruben Macias MD on 02/25/2017 7:30:48 AM electronically signed on 02/25/2017 7:31:00 AM with status of Final
[2017-02-25] MEDS: Aspirin 81 MG TAB.CHEW PO SCH (08:59)
[2017-02-25] MEDS: *HR* OxyCODONE Immed Rel 5 MG TABLET PO PRN (09:02)
--- NOTE | 2017-02-25 10:17 | Discharge Summary ---
Date of Encounter: 02/25/17 Time of Encounter: 09:00 - Discharge Diagnosis (1) CVA (cerebral vascular accident) Priority: Primary Status: Acute Qualifiers: CVA mechanism: unspecified Qualified Code(s): I63.9 - Cerebral infarction, unspecified (2) Hypertension Priority: Secondary Status: Chronic Qualifiers: Hypertension type: essential hypertension Qualified Code(s): I10 - Essential (primary) hypertension (3) DVT prophylaxis Priority: Secondary Status: Acute (4) Abnormal liver function Priority: Secondary Status: Acute - Discharge Medications Prescriptions: Atorvastatin [Lipitor] 40 mg PO HS #30 tablet Meclizine [Antivert] 25 mg PO TID #60 tablet Ondansetron [Zuplenz] 4 mg PO Q6H PRN #30 film PRN Reason: Nausea Home Medications: Losartan/HCTZ [Hyzaar 50/12.5] 1 each PO DAILY 01/21/15 [History] Aspirin Enteric Coated [Aspirin EC] 81 mg PO DAILY #30 tablet. 11/11/16 [Rx] Furosemide [Lasix] 20 mg PO DAILY 02/22/17 [History] Meloxicam [Mobic] 15 mg PO DAILY 02/22/17 [History] Potassium Chloride [Klor-Con 10] 10 meq PO DAILY 02/22/17 [History] Tizanidine HCl [Zanaflex] 2 mg PO TID 02/22/17 [History] Atorvastatin [Lipitor] 40 mg PO HS #30 tablet 02/25/17 [Rx] Meclizine [Antivert] 25 mg PO TID #60 tablet 02/25/17 [Rx] Ondansetron [Zuplenz] 4 mg PO Q6H PRN #30 film 02/25/17 [Rx] Allergies/Adverse Reactions: 3 Allergy/AdvReac Type Severity Reaction Status Date / Time IV DYE Allergy Hives Uncoded 02/22/17 18:04 - Notes to Outpatient Provider 1. Patient has transient abnormal liver function, probably due to nausea and vomiting. Liver functions improved now. However, she was started on atorvastatin. Please follow-up her liver function on next outpatient visit. Date of admission: 02/24/17 13:20 Primary care physician: Rosa Moran Discharging clinician: Se Duke Anticipated date of discharge: 09/20/17 - Patient Status Disposition: Home, Self-Care Condition: Good Functional capacity at discharge: independent ambulation Overall status at discharge: patient is progressing back to baseline - Discharge Instructions Follow Up With: Rosa Moran MD [Primary Care Provider] - 03/05/17 4:00 pm - Diet and Activity Activity: increase activity as tolerated Diet: low fat, low cholesterol, low salt diet Interval History: HPI: Ms. Padilla is a 51 year old female who presents with complaints of right-sided facial numbness and paresthesias which started yesterday after awakening. Symptoms persisted throughout the day, and she came to the ER tonight. She denies any other focal deficits, but she has had some difficulty walking. Workup in the ER was negative, but the CT of the head did show some punctate foci in the internal capsules which may be artifact. She was subsequently admitted to the hospitalist service. She had a headache earlier with nausea and vomiting, but that resolved. She just has some periodic nausea now. She and her deny any speech deficits, choking, gagging, numbness or paralysis in her extremities. Hospital course: Ms. Padilla is a 51 year old female admitted for right-sided numbness and vertigo. Patient had MRI shows acute infarct on the right medulla. Neurology consult was called and saw patient. Patient had echocardiogram, duplex carotid, and continuous cardiac monitoring for over 24 hours, all results unremarkable. PT OT and speech therapy saw patient, patient does not need further PTOT. Patient is cleared by swallow evaluation. Patient was placed on aspirin and atorvastatin. Patient also was treated symptomatically with meclizine and Zofran. After treatment, her condition has improved, she tolerated cardiac diet well, and no further vomiting. Patient will discharge home and the follow- up with PCP as outpatient. I saw and examined the patient today. She is awake alert, oriented 3. Still mild dizziness, no nausea no vomiting. Can walk in the room without assistance. Vitals are stable. Patient will be discharged home with aspirin and atorvastatin. She will follow-up with PCP as outpatient. Patient is advised to stop driving until further cleared by PCP. - Time Spent with Patient Total time spent providing and/or coordinating discharge services: 25 minutes Less than 30 minutes - Constitutional Vitals: Temp Pulse Resp BP Pulse Ox 98 F 70 16 161/87 97 02/25/17 07:01 02/25/17 07:01 02/25/17 07:01 02/25/17 07:01 02/25/17 09:07 General appearance: Present: A&O X 3, no acute distress - Head Head exam: Present: atraumatic, normocephalic - Eye Eye exam: Present: PERRL, conjuntiva pink, sclera anicteric Pupils: Present: PERRL - Neck Neck exam general surgery: Present: supple, trachea midline. Absent: lymphadenopathy - Respiratory Respiratory exam: Present: CTAB. Absent: accessory muscle use, rales, rhonchi, wheezes - Cardiovascular Cardiovascular exam: Present: RRR, +S1, +S2. Absent: diastolic murmur, gallop, rubs, systolic murmur - GI/Abdominal GI/Abdominal exam: Present: normal bowel sounds, soft, no peritoneal signs. Absent: distended, tenderness - Extremities Exam Extremities exam: Present: warm, radial pulses palpable and symmetrical. Absent : calf tenderness, cyanotic, pedal edema - Neurological Exam Neurological exam: Present: CN II-XII intact, oriented X3, no focal deficits. Absent: pronater drift, facial droop, speech deficit - Skin Skin exam: Present: dry, intact
[2017-02-25 11:04] VITALS: BP 157/76
--- NOTE | 2017-02-25 12:15 | Neurology Progress Note ---
Date of Encounter: 02/25/17 Time of Encounter: 07:25 Assessment and Plan (1) CVA (cerebral vascular accident) Current Visit: Yes Status: Acute Overall patient is a stable no evidence of any embolic source suspected is a small vessel disease likely related to hypertension hyperglycemia. Suggest to continue on antiplatelet therapy as well as statin. Considering she did not have any significant focal neurological deficit do not think that she would require any short-term rehabilitation. Next on patient to be followed up by primary care physician as well as with neurology in 2-4 weeks Qualifiers: CVA mechanism: unspecified Qualified Code(s): I63.9 - Cerebral infarction, unspecified (2) Tension headache Current Visit: No Status: Acute (3) Right facial numbness Current Visit: Yes Status: Acute Subjective Interval history: Patient overall is stable she denies any new weakness or numbness less anxious and nervous today MRI did shows tiny acute infarct in the right side of the [place] echocardiogram is negative, carotids were also negative, doing better, Objective - Constitutional Vitals: Temp Pulse Resp BP Pulse Ox 98.4 F 78 16 157/76 98 02/25/17 11:02 02/25/17 11:02 02/25/17 11:02 02/25/17 11:02 02/25/17 11:02 - Neurological Exam Sensorimotor examination: Present: intact Motor Examination: Present: grossly full strength in all extremities Sensation intact: Present: intact Reflex and gait examination: intact Mental Status Examination: Present: awake, alert, oriented to person, oriented to place, oriented to time, follows commands appropriately, answers questions appropriately, no agnosia, no aphasia, no aproxia Cranial nerve examination: Present: PERRL (mild dysmetria on right ), EOMI, visual waldrop intact, corneal reflexes brisk symmetrically, sensory to face intact, mastication intact, no facial asymmetry is present, no dysarthria, hearing is intact symmetrically, soft palate elevates bilaterally upon phonation , gag reflex intact, flexes SCM and trapezius muscles symmetrically with full power, tongue protrudes midline, no atrophy or facial fasiculations present Results - Laboratory Findings CBC and BMP: 02/25/17 04:38 02/25/17 04:38 Abnormal lab findings: Abnormal lab results Glucose 111 mg/dL (70-99) H 02/25/17 04:38 POC Glucose 153 (58-89) H 02/22/17 18:11 AST 47 Units/L (5-34) H 02/25/17 04:38 Albumin 3.2 g/dL (3.5-5.0) L 02/25/17 04:38 Globulin 3.8 g/dL (2.4-3.5) H 02/25/17 04:38 Albumin/Globulin Ratio 0.8 (1.1-2.2) L 02/25/17 04:38 Triglycerides 177 mg/dL (< 150) H 02/24/17 04:40 LDL Cholesterol, Calc 111 mg/dL (0-99) H 02/24/17 04:40 VLDL Cholesterol, Calc 35 mg/dL (< 31) H 02/24/17 04:40 HDL Cholesterol 33 mg/dL (40-59) L 02/24/17 04:40 Cholesterol/HDL Ratio 5.4 (0-4.9) H 02/24/17 04:40 Ur Specific [place] 1.027 (1.010-1.025) H 02/23/17 05:30 Consult Discharge Plan - Plan Referrals: Rosa Moran MD [Primary Care Provider] - 03/05/17 4:00 pm Prescriptions: Atorvastatin [Lipitor] 40 mg PO HS #30 tablet Meclizine [Antivert] 25 mg PO TID #60 tablet Ondansetron [Zuplenz] 4 mg PO Q6H PRN #30 film PRN Reason: Nausea
== END 2017-02-25 15:37 | disposition home or self-care (01) | DRG 66 ==
LOC: 2NENU 17:51 → EMEROO 17:51 → 2NENU 23:36
PROVIDERS: ADMIT Pediatrics; ATTEND Internal Medicine

== ENCOUNTER 2021-08-29 06:20 | Inpatient (IN) ==
[2021-08-29] MEDS ORDERED: *HR* Propofol 200 MG/20 ML VIAL IVP ONE (06:43)
[2021-08-29] MEDS ORDERED: Lidocaine -MPF 2% 2 ML VIAL ONE (06:44)
[2021-08-29] MEDS ORDERED: Lidocaine -MPF 4% 5 ML AMPUL ONE (06:44)
[2021-08-29] MEDS ORDERED: *HR* Rocuronium Bromide 50 MG/5 ML VIAL ONE ×2 (06:44→08:34)
[2021-08-29] MEDS ORDERED: Ondansetron 4 MG/2 ML VIAL ONE (06:44)
[2021-08-29] MEDS ORDERED: CeFAZolin Syr 2,000MG/20 ML 2,000 MG/20 ML SYRINGE IVPB ONE (06:57)
[2021-08-29] MEDS ORDERED: *HR* FentaNYL (PF) 100 MCG/2 ML VIAL ONE (07:07)
[2021-08-29] MEDS ORDERED: Pregabalin 75 MG CAPSULE PO ONE (07:10)
[2021-08-29] MEDS ORDERED: tiZANidine 4 MG TABLET PO ONE (07:10)
[2021-08-29] MEDS ORDERED: *HR* Midazolam HCl 2 MG/2 ML VIAL ONE (07:23)
[2021-08-29] MEDS: Ringers Solution, Lactated 1,000 ML IVC SCH ×2 (07:26→12:23)
[2021-08-29] MEDS ORDERED: *HR* OxyCODONE Immed Rel 5 MG TABLET PO PRN (07:56)
[2021-08-29] MEDS ORDERED: *HR* HYDROmorphone PF 0.5 MG/0.5 ML SYRINGE IVP PRN ×2 (07:56→17:04)
[2021-08-29] MEDS ORDERED: Ondansetron 4 MG/2 ML VIAL IVP PRN ×3 (07:56→17:04)
[2021-08-29] MEDS ORDERED: Ketorolac 30 MG/ML VIAL IVP PRN (07:56)
[2021-08-29] MEDS ORDERED: *HR* Labetalol 20 MG/4 ML SYRINGE IVP PRN (07:56)
[2021-08-29] MEDS ORDERED: Albuterol 2.5 MG/3 ML NEBULIZER IH PRN (07:56)
[2021-08-29] MEDS ORDERED: Promethazine 6.25 MG in Water for inj. (sterile) 20 ML IVPB PRN (07:56)
[2021-08-29] MEDS ORDERED: EPHEDrine 50 MG/ML VIAL ONE (08:24)
[2021-08-29] MEDS ORDERED: Sugammadex Sodium 200 MG/2 ML VIAL IV ONE (08:45)
[2021-08-29] MEDS ORDERED: *HR* HYDROMORPHONE 2 MG/ML VIAL ONE (09:37)
[2021-08-29] MEDS ORDERED: Naloxone 0.4 MG/ML INJ IVP PRN ×2 (11:00→17:04)
[2021-08-29] MEDS ORDERED: 0.9 % Sodium Chloride 1,000 ML IVC SCH (11:00)
[2021-08-29] MEDS ORDERED: *HR* HYDROcodone/Acet 5/325 mg TABLET PO PRN ×2 (11:00→17:04)
[2021-08-29] MEDS ORDERED: cloNIDine HCL 0.1 MG TABLET PO PRN (11:01)
[2021-08-29] MEDS ORDERED: *HR* Heparin 5,000 UNIT/ML VIAL SQ SCH (14:00)
[2021-08-29] MEDS ORDERED: Gabapentin 300 MG CAPSULE PO SCH (15:00)
[2021-08-29] MEDS: Ipratropium/Albuterol Neb 3 ML IH SCH ×4 (15:05→23:59)
[2021-08-29] MEDS: 0.9 % Sodium Chloride 1,000 ML IVC SCH (17:43)
[2021-08-29] MEDS: Gabapentin 300 MG CAPSULE PO SCH (20:00)
[2021-08-29] MEDS: Famotidine 20 MG TABLET PO SCH (20:01)
[2021-08-29] MEDS: Sennosides/Docusate Sodium TABLET PO SCH (20:01)
[2021-08-29] MEDS ORDERED: Famotidine 20 MG TABLET PO SCH (21:00)
[2021-08-29] MEDS ORDERED: Sennosides/Docusate Sodium TABLET PO SCH (21:00)
[2021-08-29] MEDS: *HR* Heparin 5,000 UNIT/ML VIAL SQ SCH (22:57)
[2021-08-29] MEDS: *HR* HYDROcodone/Acet 7.5/325 mg TABLET PO PRN (23:25)
[2021-08-30] MEDS: 0.9 % Sodium Chloride 1,000 ML IVC SCH (01:52)
[2021-08-30] MEDS: *HR* HYDROcodone/Acet 7.5/325 mg TABLET PO PRN ×5 (03:10→21:44)
[2021-08-30] MEDS: Ipratropium/Albuterol Neb 3 ML IH SCH ×6 (04:27→23:40)
[2021-08-30] MEDS: *HR* Heparin 5,000 UNIT/ML VIAL SQ SCH ×3 (05:31→21:44)
[2021-08-30 06:08] LABS: Hemoglobin 14.5 g/dL (11.5-15.4); Mean Corpuscular HGB Conc 33.7 g/dL (31.6-35.5); Mean Corpuscular Hemoglobin 34.8 pg (28.0-33.3); Mean Corpuscular Volume 103.1 fL (83.0-100.0); Mean Platelet Volume 9.7 fL (9.4-12.4); Platelet Count 370 K/mcL (140-400); Red Blood Count 4.17 M/mcL (3.82-4.97); Red Cell Distribution Width 12.4 % (11.5-14.5); White Blood Count 15.1 K/mcL (4.3-11.1)
[2021-08-30 06:28] LABS: BUN/Creatinine Ratio 19 (6-26); Blood Urea Nitrogen 13 mg/dL (6-20); Calcium 9.1 mg/dL (8.6-10.3); Carbon Dioxide 27 mEq/L (23-29); Chloride 100 mEq/L (98-107); Glucose 117 mg/dL (70-105); Magnesium 1.8 mg/dL (1.6-2.6); Osmolality,Calculated 281 (280-300); Potassium 3.8 mEq/L (3.5-5.1); Sodium 135 mEq/L (136-145); eGFR For African Americans > 60 (> 60); eGFR For Non-African Americans > 60 (> 60)
[2021-08-30] MEDS: BuPROPion XL (24 HR) 150 MG TABLET PO SCH (07:53)
[2021-08-30] MEDS: Aspirin Enteric Coated 81 MG Tablet PO SCH (07:53)
[2021-08-30] MEDS: Gabapentin 300 MG CAPSULE PO SCH ×3 (07:53→19:47)
[2021-08-30] MEDS: Losartan/HCTZ 50-12.5 TABLET PO SCH (07:53)
[2021-08-30] MEDS: Sennosides/Docusate Sodium TABLET PO SCH ×2 (07:54→19:47)
[2021-08-30] MEDS: Famotidine 20 MG TABLET PO SCH ×2 (07:55→19:48)
[2021-08-30] MEDS ORDERED: BuPROPion XL (24 HR) 150 MG TABLET PO SCH (09:00)
[2021-08-30] MEDS ORDERED: Aspirin Enteric Coated 81 MG Tablet PO SCH (09:00)
[2021-08-30] MEDS ORDERED: Losartan/HCTZ 50-12.5 TABLET PO SCH (09:00)
[2021-08-30] MEDS: Ketorolac 30 MG/ML VIAL IVP SCH ×2 (11:50→16:49)
[2021-08-31] MEDS: Ketorolac 30 MG/ML VIAL IVP SCH ×5 (00:02→23:57)
[2021-08-31] MEDS: *HR* HYDROcodone/Acet 7.5/325 mg TABLET PO PRN ×4 (04:04→21:52)
[2021-08-31] MEDS: Ipratropium/Albuterol Neb 3 ML IH SCH ×6 (04:12→23:35)
[2021-08-31 04:52] LABS: BUN/Creatinine Ratio 20 (6-26); Blood Urea Nitrogen 12 mg/dL (6-20); Calcium 8.9 mg/dL (8.6-10.3); Carbon Dioxide 28 mEq/L (23-29); Chloride 102 mEq/L (98-107); Glucose 140 mg/dL (70-105); Osmolality,Calculated 284 (280-300); Potassium 4.2 mEq/L (3.5-5.1); Sodium 136 mEq/L (136-145); eGFR For African Americans > 60 (> 60); eGFR For Non-African Americans > 60 (> 60)
[2021-08-31] MEDS: *HR* Heparin 5,000 UNIT/ML VIAL SQ SCH ×3 (06:04→21:51)
[2021-08-31] MEDS: Sennosides/Docusate Sodium TABLET PO SCH ×2 (08:43→21:52)
[2021-08-31] MEDS: Losartan/HCTZ 50-12.5 TABLET PO SCH (08:44)
[2021-08-31] MEDS: Gabapentin 300 MG CAPSULE PO SCH ×3 (08:44→21:52)
[2021-08-31] MEDS: Famotidine 20 MG TABLET PO SCH ×2 (08:44→21:52)
[2021-08-31] MEDS: Aspirin Enteric Coated 81 MG Tablet PO SCH (08:44)
[2021-08-31] MEDS: BuPROPion XL (24 HR) 150 MG TABLET PO SCH (08:44)
[2021-09-01] MEDS: Ipratropium/Albuterol Neb 3 ML IH SCH ×6 (04:10→23:41)
[2021-09-01] MEDS: Ketorolac 30 MG/ML VIAL IVP SCH ×3 (04:43→18:05)
[2021-09-01] MEDS: *HR* Heparin 5,000 UNIT/ML VIAL SQ SCH ×3 (04:44→20:49)
[2021-09-01] MEDS: *HR* HYDROcodone/Acet 7.5/325 mg TABLET PO PRN ×4 (04:44→20:58)
[2021-09-01 06:55] LABS: BUN/Creatinine Ratio 17 (6-26); Blood Urea Nitrogen 13 mg/dL (6-20); Calcium 9.1 mg/dL (8.6-10.3); Carbon Dioxide 25 mEq/L (23-29); Chloride 98 mEq/L (98-107); Glucose 177 mg/dL (70-105); Magnesium 2.1 mg/dL (1.6-2.6); Osmolality,Calculated 280 (280-300); Potassium 3.9 mEq/L (3.5-5.1); Sodium 133 mEq/L (136-145); eGFR For African Americans > 60 (> 60); eGFR For Non-African Americans > 60 (> 60)
[2021-09-01] MEDS: Aspirin Enteric Coated 81 MG Tablet PO SCH (08:44)
[2021-09-01] MEDS: BuPROPion XL (24 HR) 150 MG TABLET PO SCH (08:44)
[2021-09-01] MEDS: Losartan/HCTZ 50-12.5 TABLET PO SCH (08:44)
[2021-09-01] MEDS: Famotidine 20 MG TABLET PO SCH ×2 (08:44→20:49)
[2021-09-01] MEDS: Sennosides/Docusate Sodium TABLET PO SCH ×2 (08:45→20:49)
[2021-09-01] MEDS: Furosemide 20 MG/2 ML VIAL IVP SCH (08:45)
[2021-09-01] MEDS: Gabapentin 300 MG CAPSULE PO SCH ×3 (08:45→20:49)
[2021-09-02] MEDS: *HR* HYDROcodone/Acet 7.5/325 mg TABLET PO PRN ×3 (02:53→20:36)
[2021-09-02] MEDS: Ketorolac 30 MG/ML VIAL IVP SCH ×6 (03:01→23:56)
[2021-09-02] MEDS: Ipratropium/Albuterol Neb 3 ML IH SCH ×6 (04:24→23:43)
[2021-09-02] MEDS: *HR* Heparin 5,000 UNIT/ML VIAL SQ SCH ×3 (05:02→20:36)
[2021-09-02] MEDS: Aspirin Enteric Coated 81 MG Tablet PO SCH (08:32)
[2021-09-02] MEDS: BuPROPion XL (24 HR) 150 MG TABLET PO SCH (08:32)
[2021-09-02] MEDS: Famotidine 20 MG TABLET PO SCH ×2 (08:33→20:36)
[2021-09-02] MEDS: Losartan/HCTZ 50-12.5 TABLET PO SCH (08:33)
[2021-09-02] MEDS: Gabapentin 300 MG CAPSULE PO SCH ×3 (08:33→20:36)
[2021-09-02] MEDS: Furosemide 20 MG/2 ML VIAL IVP SCH (09:33)
[2021-09-02] MEDS: Sennosides/Docusate Sodium TABLET PO SCH (09:33)
[2021-09-03] MEDS: Ipratropium/Albuterol Neb 3 ML IH SCH ×2 (04:09→08:30)
[2021-09-03] MEDS: *HR* Heparin 5,000 UNIT/ML VIAL SQ SCH (06:02)
[2021-09-03] MEDS: Ketorolac 30 MG/ML VIAL IVP SCH (06:03)
[2021-09-03] MEDS: *HR* HYDROcodone/Acet 7.5/325 mg TABLET PO PRN (07:43)
[2021-09-03] MEDS: Gabapentin 300 MG CAPSULE PO SCH (07:43)
[2021-09-03 08:07] VITALS: BP 155/60; PULSE 84; TEMP 97.8
[2021-09-03] MEDS: Famotidine 20 MG TABLET PO SCH (09:23)
[2021-09-03] MEDS: BuPROPion XL (24 HR) 150 MG TABLET PO SCH (09:23)
[2021-09-03] MEDS: Losartan/HCTZ 50-12.5 TABLET PO SCH (09:23)
[2021-09-03] MEDS: Aspirin Enteric Coated 81 MG Tablet PO SCH (09:24)
[2021-09-03 10:43] VITALS: O2SAT 99
== END 2021-09-03 10:40 | disposition home or self-care (01) | DRG 165 ==
LOC: SAMDAY 06:20 → 2NNU 14:26
PROVIDERS: ADMIT Thoracic Surgery (Cardiothoracic Vascular Surgery); ATTEND Thoracic Surgery (Cardiothoracic Vascular Surgery)

== ENCOUNTER 2022-02-16 19:35 | Inpatient (IN) ==
[2022-02-17] MEDS ORDERED: Naloxone 0.4 MG/ML INJ IVP PRN ×2 (00:15→21:45)
[2022-02-17] MEDS ORDERED: *HR* HYDROcodone/Acet 5/325 mg TABLET PO PRN (00:15)
[2022-02-17] MEDS ORDERED: *HR* OxyCODONE Immed Rel 5 MG TABLET PO PRN ×3 (00:15→21:45)
[2022-02-17] MEDS ORDERED: Prochlorperazine 10 MG/2 ML VIAL IVP ONE (00:18)
[2022-02-17] MEDS ORDERED: Dextrose Gel 15 GM/37.5 ML TUBE PO PRN ×6 (00:19→21:45)
[2022-02-17] MEDS ORDERED: *HR* Dextrose 50 % in Water (Syg) 50 ML SYRINGE IVP PRN ×2 (00:19→21:45)
[2022-02-17] MEDS ORDERED: D5% in Water 1,000 ML IVC PRN ×2 (00:19→21:45)
[2022-02-17] MEDS ORDERED: Potassium Chloride Elixir 20 MEQ/15 ML UDC PO ONE (02:21)
[2022-02-17 04:42] LABS: Hematocrit 38.4 % (35.3-44.9); Mean Corpuscular HGB Conc 33.9 g/dL (31.6-35.5); Mean Corpuscular Hemoglobin 32.7 pg (28.0-33.3); Mean Corpuscular Volume 96.7 fL (83.0-100.0); Mean Platelet Volume 9.1 fL (9.4-12.4); Platelet Count 317 K/mcL (140-400); Red Blood Count 3.97 M/mcL (3.82-4.97); Red Cell Distribution Width 12.4 % (11.5-14.5); White Blood Count 20.3 K/mcL (4.3-11.1)
[2022-02-17 05:02] LABS: Magnesium 1.5 mg/dL (1.6-2.6); Potassium 3.5 mEq/L (3.5-5.1)
[2022-02-17 05:06] LABS: Chol/HDL Ratio 3.4 (0-4.9)
[2022-02-17] MEDS ORDERED: Albumin 25% 25gram/100mL 25 GM/100 ML IV.SOLN IVPB ONE (05:08)
[2022-02-17 05:55] LABS: Estimated Average Glucose 137 mg/dl; Hemoglobin A1C 6.4 %
[2022-02-17] MEDS: Insulin LISPRO 300 UNITS/3 ML VIAL SUBQ SCH ×3 (08:02→18:43)
[2022-02-17] MEDS: Piperacillin/Tazobactam 3.375 GM in 0.9 % Sodium Chloride Mini Bag 100 ML IVPB SCH ×2 (08:45→15:41)
[2022-02-17] MEDS: Acetaminophen 325 MG TABLET PO PRN ×2 (08:48→15:40)
[2022-02-17] MEDS ORDERED: Losartan/HCTZ 50-12.5 TABLET PO SCH (09:00)
[2022-02-17] MEDS ORDERED: Loratadine 10 MG TABLET PO SCH (09:00)
[2022-02-17] MEDS ORDERED: BuPROPion XL (24 HR) 150 MG TABLET PO SCH (09:00)
[2022-02-17] MEDS ORDERED: Aspirin Enteric Coated 81 MG Tablet PO SCH (09:00)
[2022-02-17] MEDS ORDERED: 0.9 % Sodium Chloride 1,000 ML IVC SCH (11:45)
[2022-02-17] MEDS ORDERED: Ondansetron 4 MG/2 ML VIAL IVP PRN ×3 (15:39→21:45)
[2022-02-17] MEDS ORDERED: *HR* Propofol 200 MG/20 ML VIAL IVP ONE (16:48)
[2022-02-17] MEDS ORDERED: Lidocaine -MPF 2% 5 ML VIAL ONE (16:49)
[2022-02-17] MEDS ORDERED: Ondansetron 4 MG/2 ML VIAL ONE (16:49)
[2022-02-17] MEDS ORDERED: *HR* FentaNYL (PF) 100 MCG/2 ML VIAL ONE (16:51)
[2022-02-17] MEDS ORDERED: Iopamidol - 300 100 ML INFUS..BTL ONE (16:56)
[2022-02-17] MEDS ORDERED: *HR* FentaNYL (PF) 100 MCG/2 ML VIAL IVP PRN (16:59)
[2022-02-17] MEDS ORDERED: Albuterol 2.5 MG/3 ML NEBULIZER IH PRN (16:59)
[2022-02-17] MEDS ORDERED: *HR* Midazolam HCl 2 MG/2 ML VIAL ONE (17:19)
[2022-02-17] MEDS ORDERED: Ondansetron 4 MG/2 ML VIAL IVP SCH (18:00)
[2022-02-17] MEDS ORDERED: Albumin Human 5% 12.5 GM/250 ML IV.SOLN IVPB ONE ×2 (19:22→23:51)
[2022-02-17] MEDS ORDERED: Albumin Human 5% 12.5 GM/250 ML IV.SOLN ONE (19:26)
[2022-02-17] MEDS ORDERED: cefTRIAXone 1,000 MG in 0.9 % Sodium Chloride Mini Bag 100 ML IVPB SCH (20:00)
[2022-02-17] MEDS ORDERED: Acetaminophen IV 1,000 MG/100 ML BAG IVPB PRN (20:18)
[2022-02-17] MEDS: 0.9 % Sodium Chloride 1,000 ML IVC SCH (22:11)
[2022-02-18] MEDS ORDERED: Insulin LISPRO 300 UNITS/3 ML VIAL SUBQ SCH
[2022-02-18] MEDS: Piperacillin/Tazobactam 3.375 GM in 0.9 % Sodium Chloride Mini Bag 100 ML IVPB SCH ×2 (00:06→08:26)
[2022-02-18] MEDS: Albumin Human 5% 12.5 GM/250 ML IV.SOLN IVC SCH ×2 (00:11→04:27)
[2022-02-18 03:11] LABS: Hematocrit 34.6 % (35.3-44.9); Hemoglobin 11.7 g/dL (11.5-15.4); Mean Corpuscular HGB Conc 33.8 g/dL (31.6-35.5); Mean Corpuscular Hemoglobin 33.1 pg (28.0-33.3); Mean Platelet Volume 9.2 fL (9.4-12.4); Platelet Count 265 K/mcL (140-400); Red Blood Count 3.53 M/mcL (3.82-4.97); Red Cell Distribution Width 12.6 % (11.5-14.5); White Blood Count 13.6 K/mcL (4.3-11.1)
[2022-02-18 03:30] LABS: Calcium 8.4 mg/dL (8.6-10.3); Potassium 3.5 mEq/L (3.5-5.1)
[2022-02-18] MEDS: Acetaminophen 325 MG TABLET PO PRN ×2 (03:46→10:41)
[2022-02-18] MEDS: BuPROPion XL (24 HR) 150 MG TABLET PO SCH (08:21)
[2022-02-18] MEDS: Aspirin Enteric Coated 81 MG Tablet PO SCH (08:22)
[2022-02-18] MEDS: Loratadine 10 MG TABLET PO SCH (08:22)
[2022-02-18] MEDS: Insulin LISPRO 300 UNITS/3 ML VIAL SUBQ SCH ×3 (08:22→17:37)
[2022-02-18] MEDS ORDERED: cefTRIAXone 1,000 MG in 0.9 % Sodium Chloride Mini Bag 100 ML IVPB SCH (12:00)
[2022-02-18] MEDS: 0.9 % Sodium Chloride 1,000 ML IVC SCH (12:09)
[2022-02-18] MEDS ORDERED: *HR* Promethazine 25 MG/ML VIAL IM ONE (19:18)
[2022-02-18] MEDS ORDERED: Acetaminophen IV 1,000 MG/100 ML BAG IVPB ONE (19:18)
[2022-02-19] MEDS: 0.9 % Sodium Chloride 1,000 ML IVC SCH (01:04)
[2022-02-19] MEDS: Acetaminophen 325 MG TABLET PO PRN (03:11)
[2022-02-19 04:59] LABS: Basophils % 0.2 %; Eosinophils # 0.1 K/mcL (0.0-0.6); Eosinophils % 0.7 %; Hematocrit 35.5 % (35.3-44.9); Immature Granulocytes % 0.3 % (0-4); Lymphocytes # 0.7 K/mcL (0.6-4.6); Lymphocytes % 6.8 %; Mean Corpuscular HGB Conc 33.8 g/dL (31.6-35.5); Mean Corpuscular Hemoglobin 33.3 pg (28.0-33.3); Mean Corpuscular Volume 98.6 fL (83.0-100.0); Mean Platelet Volume 9.5 fL (9.4-12.4); Monocytes # 0.5 K/mcL (0.0-1.3); Monocytes % 5.5 %; Neutrophils # 8.3 K/mcL (1.6-8.9); Platelet Count 288 K/mcL (140-400); Red Cell Distribution Width 13.1 % (11.5-14.5); Segmented Neutrophils % 86.5 %; White Blood Count 9.6 K/mcL (4.3-11.1)
[2022-02-19 05:13] LABS: Calcium 8.3 mg/dL (8.6-10.3)
[2022-02-19 07:30] VITALS: BP 138/71; TEMP 97.8
[2022-02-19] MEDS: Insulin LISPRO 300 UNITS/3 ML VIAL SUBQ SCH (08:45)
[2022-02-19] MEDS: Loratadine 10 MG TABLET PO SCH (08:46)
[2022-02-19] MEDS: Aspirin Enteric Coated 81 MG Tablet PO SCH (08:46)
[2022-02-19] MEDS: BuPROPion XL (24 HR) 150 MG TABLET PO SCH (08:46)
[2022-02-19 08:59] LABS: Magnesium 1.7 mg/dL (1.6-2.6)
[2022-02-19 11:29] VITALS: PULSE 82; O2SAT 95
== END 2022-02-19 12:02 | disposition home or self-care (01) | DRG 854 ==
LOC: 3ANU → SUATTDRO 21:37 → 2NNU 02-17 19:25
PROVIDERS: ADMIT Internal Medicine; ATTEND Registered Nurse